=== PATIENT | female | born 1950 ===

== ENCOUNTER 2017-11-11 07:33 | Day surgery (SDC) | payer OTHER ==
[2017-11-11] MEDS ORDERED: Propofol 10 mg/ml Inj (20 ML) ONE (10:54)
[2017-11-11] MEDS ORDERED: Lactated Ringer's 1,000 ML IV ONE (10:57)
[2017-11-11 12:30] VITALS: O2SAT 99
[2017-11-11 13:53] VITALS: BP 180/90; PULSE 86; RESP 14; TEMP 98.5
== END 2017-11-11 12:55 | disposition home or self-care (01) ==
LOC: C.ENDO 07:33
PROVIDERS: ATTEND Internal Medicine Gastroenterology
DX: Z12.11 Encounter for screening for malignant neoplasm of colon (principal); I10 Essential (primary) hypertension; E11.9 Type 2 diabetes mellitus without complications; E78.5 Hyperlipidemia, unspecified; E03.9 Hypothyroidism, unspecified; K64.8 Other hemorrhoids
CPT/HCPCS: 45378; 82948; J2704; J7120